=== PATIENT | female | born 1980 | race Caucasian/White ===

== ENCOUNTER 2019-10-10 17:10 | Outpatient (CLI) | payer OTHER, SELFPAY ==
--- NOTE | ~2019-10-10 | US_ITS ---
EXAMINATION: US thyroid DATE: 10/10/2019 17:36 INDICATION: Nontoxic single thyroid nodule TECHNIQUE: Multiple ultrasound images of the thyroid were obtained. COMPARISON: None. FINDINGS: The right thyroid lobe measures 5.0 x 1.3 x 1.7 cm. The left thyroid lobe measures 5.2 x 1.8 x 1.6 c m. Thyroid isthmus measures 2 mm in thickness. No significant interval change in a 2.1 x 1.4 x 1.0 cm wider than tall solid hypoechoic nodule with smooth margins and without echogenic foci. (TI-RADS 4, moderately suspicious , FNA if >=1.5 cm, annual followup is >1 cm) prior benign biopsy on 10/19/2018. Again seen are a few additional subcentimeter nodules in the left and right thyroid lobes. There is n ormal echotexture, echogenicity and vascular flow throughout the surrounding thyroid gland. IMPRESSION: 1. Multinodular goiter with a few centimeter nodules and no interval change in the largest 2.1 cm lef t thyroid nodule with prior benign biopsy demonstrating benign colloid nodule with cystic degenerati on. Reviewed, dictated and finalized at location A. IMPRESSION: 1. Multinodular goiter with a few centimeter nodules and no interval change in the largest 2.1 cm left thyroid nodule with prior benign biopsy demonstrating benign colloid nodule with cystic degeneration.
== END 2019-10-10 17:11 | disposition home or self-care (01) ==
PROVIDERS: PCP Physician Assistant
DX: E04.2 Nontoxic multinodular goiter (principal)
CPT/HCPCS: 76536

== ENCOUNTER → 2019-11-11 13:49 | Outpatient (CLI) | payer OTHER, SELFPAY ==
--- NOTE | ~2019-11-11 | XR_ITS ---
XR cervical spine 4-5V 11/11/2019 14:07 Indication: Neck pain Procedure: 4 view cervical spine Comparison: No prior studies for comparison. Findings: Straightening of cervical lordosis. Normal alignment. Vertebral body heights are maintained . No fracture or traumatic malalignment. Lung apices are unremarkable. No prevertebral soft tissue sw elling. Odontoid process within normal limits. Impression: 1: No significant abnormality of the cervical spine. Reviewed, dictated and finalized at location B. Impression: 1: No significant abnormality of the cervical spine.
== END ==
PROVIDERS: PCP Physician Assistant; Visit Provider Physician Assistant
DX: M54.2 Cervicalgia (principal); M54.12 Radiculopathy, cervical region
CPT/HCPCS: 72050

== ENCOUNTER → 2020-09-28 15:50 | Outpatient (CLI) | payer OTHER, SELFPAY ==
--- NOTE | ~2020-09-28 | US_ITS ---
EXAMINATION: US thyroid DATE: 09/28/2020 16:03 INDICATION: Thyroid nodule. TECHNIQUE: Multiple ultrasound images of the thyroid were obtained. COMPARISON: Thyroid ultrasound 10/10/2019, 09/28/18 FINDINGS: The right thyroid lobe measures 4.2 x 1.2 x 1.2 cm. The left thyroid lobe measures 5.7 x 1.5 x 1.8 c m. In the right thyroid lobe, there is a 6 mm solid, hypoechoic, fqdvd-ldre-rrtt nodule with irregul ar margin and macrocalcification (TI-RADS TR5), stable from 09/28/18. In the left thyroid lobe, there i s a 2.0 cm solid, hypoechoic, tthmd-mvqj-aovr nodule with smooth margin without echogenic foci (TR4), stable from 10/19/18 when biopsy was benign. In the left thyroid lobe, there is a 5 mm solid, hypoech oic, ojvph-gjii-wnnv nodule with smooth margin without echogenic foci (TR4), stable from 09/28/18. In t he right thyroid lobe, there is an 8 mm solid, hypoechoic, cwszj-mfsr-bqiy nodule with smooth margin without echogenic foci (TR4), stable from 09/28/18. IMPRESSION: 1. Stable thyroid nodules. Thyroid ultrasound is recommended in one year. Reviewed, dictated and finalized at location A.
== END ==
PROVIDERS: PCP Physician Assistant; Visit Provider Internal Medicine Endocrinology, Diabetes & Metabolism
DX: E04.1 Nontoxic single thyroid nodule (principal)
CPT/HCPCS: 76536

== ENCOUNTER → 2020-12-19 08:55 | Outpatient (CLI) | payer OTHER, SELFPAY ==
--- NOTE | ~2020-12-19 | MMUS_ITS ---
EXAMINATION: MM diag ronnie implant BI w [place], US breast RT limited HISTORY: Palpable lump in the upper outer quadrant of the right breast TECHNIQUE: Craniocaudal, mediolateral, and mediolateral oblique 3-D tomosynthesis images with implant displacement of the breasts were performed and synthetic 2-D images were generated. Craniocaudal, m ediolateral oblique, and mediolateral views of the breasts without implant displacement were obtained using full field digital mammography. CAD analysis was submitted and interpreted. High resolution [a]list games right breast ultrasound was performed. COMPARISON: None, baseline BREAST PARENCHYMAL COMPOSITION: The breasts are heterogeneously dense, which may obscure small masses . FINDINGS: MAMMOGRAPHIC FINDINGS: There is no evidence of suspicious mass, calcification, or architectural distortion in either breast to suggest malignancy. No mammographic correlate is identified for the reported palpable abnormality of the right breast. ULTRASOUND: There is no evidence of focal abnormal solid or cystic lesion in the vicinity of the reported palpabl e abnormality of concern in the right breast IMPRESSION: 1. No specific mammographic or sonographic correlate is identified for the reported palpable abnormal ities concern in the right breast. Further evaluation at this time should be based on clinical assess ment. Continued follow-up physical examination is recommended. 2. Recommend routine screening mammography in one year. BI-RADS Category 1: Negative Reviewed, dictated and finalized at location A. IMPRESSION: 1. No specific mammographic or sonographic correlate is identified for the repo rted palpable abnormalities concern in the right breast. Further evaluation at this time should be based on clinical assessment. Continued follow-up physical examination is recommended. 2. Recommend routine screening mammography in one year. BI-RADS Category 1: Negative
== END ==
PROVIDERS: PCP Physician Assistant; Visit Provider Physician Assistant
DX: R92.8 Other abnormal and inconclusive findings on diagnostic imaging of breast (principal)
CPT/HCPCS: 76642; 77062; 77066; G0279

== ENCOUNTER → 2021-02-11 10:08 | Outpatient (CLI) | payer OTHER, SELFPAY ==
--- NOTE | ~2021-02-11 | MR_ITS ---
EXAMINATION: MR brain IAC wo/w con DATE: 02/11/2021 11:27 INDICATION: Sudden idiopathic hearing loss on the left. TECHNIQUE: Magnetic resonance imaging (MRI) of the brain, brainstem, and internal auditory canals was performed without and with 15 mm MultiHance intravenous contrast. Sequences included sagittal and ax ial T1-weighted FSE, axial diffusion-weighted FS EPI, axial T2*-weighted GRE, axial T2-weighted FLAIR Propeller, axial T2-weighted Propeller, small psjhj-hm-gjlc coronal FIESTA, small jzvmo-rd-ycxj gini nal T1-weighted FSE, and small pyfwv-cx-yefn axial T1-weighted SPGR. Postcontrast sequences included axial T1-weighted FSE, small gzwde-pg-oobj coronal T1-weighted FSE, and small lnxfb-dm-esxu axial T1- weighted SPGR. Apparent diffusion coefficient (ADC) maps were created. COMPARISON: None. FINDINGS: There is no intracranial hemorrhage, acute infarction, or abnormal intracranial mass lesion . There is a 2.9 x 2.1 cm arachnoid cyst posterior to cerebellar vermis. The ventricles are normal in size. There is mild mucosal thickening in the paranasal sinuses. The orbits are normal. The internal auditory canals and inner and middle ears are normal. The mastoid air cells are normal. IMPRESSION: 1. No etiology for the patient's symptoms. Reviewed, dictated and finalized at location A.
[2021-02-11 10:55] LABS: Estimated Glomerular Filt Rate > 60
== END ==
PROVIDERS: PCP Physician Assistant; Visit Provider Nurse Practitioner Family
DX: H91.20 Sudden idiopathic hearing loss, unspecified ear (principal)
CPT/HCPCS: 70553; A9577

== ENCOUNTER → 2021-07-24 11:11 | Outpatient (CLI) | payer OTHER, SELFPAY ==
--- NOTE | ~2021-07-24 | XR_ITS ---
XR lumbar spine 2-3V DATE: 07/24/2021 11:39 INDICATION: Low back pain TECHNIQUE: AP, lateral, coned lateral lumbosacral views COMPARISON: 02/27/2017 MRI lumbar spine 09/26/2016 lumbar spine FINDINGS: There is minimal levoscoliosis of the lumbar spine. No fracture or bone destruction or spondylolisthesis. Lumbar interspaces are well preserved. The sacroiliac joints are intact. IMPRESSION: Minimal levoscoliosis Reviewed, dictated and finalized at location A. IMPRESSION: Minimal levoscoliosis
--- NOTE | ~2021-07-24 | XR_ITS ---
XR sacroiliac joints min 3V DATE: 07/24/2021 11:39 INDICATION: Low back pain TECHNIQUE: 6 views COMPARISON: None FINDINGS: Normal alignment at the pubic symphysis and sacroiliac joints. No erosive change or ankylos is at left or right sacroiliac joints. IMPRESSION: No significant abnormality of the sacroiliac joints Reviewed, dictated and finalized at Location A. Reviewed, dictated and finalized at location A.
== END ==
PROVIDERS: PCP Physician Assistant; Visit Provider Physician Assistant
DX: M54.50 Low back pain, unspecified (principal); M41.9 Scoliosis, unspecified
CPT/HCPCS: 72100; 72202

== ENCOUNTER 2021-07-31 10:30 | Emergency (ER) | payer OTHER, SELFPAY ==
[2021-07-31 10:48] VITALS: BP 113/79; PULSE 63; RESP 18; TEMP 36; O2SAT 100
[2021-07-31] MEDS: IBUPROFEN 600 MG TABLET PO (11:26)
--- NOTE | 2021-07-31 11:44 | PC.NURSE ---
short leg splint placed to left lower extremity
--- NOTE | 2021-07-31 12:08 | ED.LOWEXIN ---
HPI - Extremity Injury (Lower) General Chief Complaint: Extremity Injury, Lower Stated Complaint: L calf injury Time Seen by Provider: 07/31/21 10:58 Source: RN notes reviewed History of Present Illness HPI Narrative: Patient presents emergency department for left calf pain. Patient states she was playing tennis just prior to arrival when she felt a pop in her left calf she states since that time she had problems moving her left foot with pain in the left calf she denies falling she denies any direct trauma or injury to the area she denies any knee or ankle pain she denies any numbness or tingling in extremities patient states she drove her self to the emergency Related Data Home Medications Medication Instructions Recorded Confirmed multivitamin,iz-xrqq-brsqvvxt 1 tablet PO DAILY 12/20/19 01/05/21 Allergies Allergy/AdvReac Type Severity Reaction Status Date / Time cefazolin Allergy Unknown Unknown Verified 07/31/21 10:59 levofloxacin Allergy Unknown Unknown Verified 07/31/21 10:59 Penicillins Allergy Unknown Unknown Verified 07/31/21 10:59 CEFAZOLIN SODIUM Allergy Mild HIVES Uncoded 07/31/21 10:59 Review of Systems Review of Systems: Gen.: Denies fevers or chills Musculoskeletal: See HPI Neuro: Denies numbness, tingling, weakness Skin: Denies rash Endo: Denies DM PMFSH Past Medical History Medical History Acid reflux Missed Vaginal delivery x 2 Surgical History Surgical History H/O bilateral breast reduction surgery History of tonsillectomy S/P dilation and curettage [place] teeth extracted Family History Family History Mother Family history of hypercholesterolemia Hypertension Father Family history of malignant neoplasm of esophagus Social History Social History Smoking status: Never smoker Alcohol intake: current Exam Narrative: APPEARANCE: No acute distress, nontoxic, resting in bed Eyes: EOMI HEENT: Normocephalic, atraumatic, RESPIRATORY: No respiratory distress MUSCULOSKELETAl: Tender palpation of the left calf no swelling or ecchymosis present no tenderness left knee or ankle, positive Duenas test, dorsalis pedis pulse 2+ neurovascular intact NEURO: Awake and alert. Following commands, speech normal, no focal deficits SKIN:: Warm, dry. Normal Color no rash or lesions Course Course Emergency Course: Discussed with Dr. Sawant concern over Achilles tendon rupture recommend patient placed in a posterior short leg splint with follow-up as an outpatient request patient started on aspirin 325 daily Discussed with patient results of workup and diagnosis. Discussed need for follow-up with primary care, proper use of medication, and reasons to return to the emergency department. Patient understands and agrees to current treatment plan Vital Signs Vital signs: Vital Signs Temperature 96.8 F L 07/31/21 10:48 Pulse Rate 63 07/31/21 10:48 Respiratory Rate 18 07/31/21 10:48 Blood Pressure 113/79 07/31/21 10:48 Pulse Oximetry 100 07/31/21 10:48 Temperature 96.8 F L 07/31/21 10:48 Pulse Rate 63 07/31/21 10:48 Respiratory Rate 18 07/31/21 10:48 Blood Pressure 113/79 07/31/21 10:48 Pulse Oximetry 100 07/31/21 10:48 Procedures Orthopedic Splinting/Casting Injury #1: Additional Comments: Left posterior short leg: Splint was placed by the emergency department fuel storage technician under my supervision. The patient was neurovascularly intact both pre-and post procedure. Discharge Plan Discharge Clinical Impression: Rupture of left Achilles tendon Patient Disposition: Home, Self-Care Condition: Stable Instructions: Antibiotic Form, Achilles Tendon Rupture (ED) Additional Instructions: Return for increasing pain numbness or tinglin
[2021-07-31 12:19] VITALS: BP 130/76; PULSE 76; RESP 16; TEMP 36.3; O2SAT 100
== END 2021-07-31 12:21 | disposition home or self-care (01) ==
PROVIDERS: Emergency Provider Emergency Medicine; PCP Physician Assistant
DX: S86.012A Strain of left Achilles tendon, initial encounter (principal); X50.0XXA Overexertion from strenuous movement or load, initial encounter
CPT/HCPCS: 29515; 99283; A9270

== ENCOUNTER → 2021-12-23 10:58 | Outpatient (CLI) | payer OTHER, SELFPAY ==
--- NOTE | ~2021-12-23 | MM_ITS ---
EXAMINATION: MM screening [facility] BI w [place]ka HISTORY: Screening mammogram TECHNIQUE: Craniocaudal and mediolateral oblique 3-D tomosynthesis images were obtained and synthetic 2-D images were generated. CAD analysis was submitted and interpreted. COMPARISON: 12/19/2020 BREAST PARENCHYMAL COMPOSITION: The breasts are extremely dense, which lowers the sensitivity of mamm ography. FINDINGS: There has been interval breast implant removal. There is no suspicious mass, calcification, or architectural distortion to suggest malignancy in either breast. There has been no suspicious int erval change. IMPRESSION: 1. No mammographic evidence of malignancy. 2. Recommend routine screening mammography in one year. BI-RADS Category 1: Negative Reviewed, dictated and finalized at location A.
--- NOTE | ~2021-12-23 | US_ITS ---
EXAMINATION: US thyroid DATE: 12/23/2021 11:19 INDICATION: Nontoxic single thyroid nodule. TECHNIQUE: Multiple ultrasound images of the thyroid were obtained. COMPARISON: Ultrasound 09/28/2020, 09/28/2018 FINDINGS: The right thyroid lobe measures 5.6 x 1.6 x 1.4 cm. The left thyroid lobe measures 4.6 x 1.3 x 1.9 c m. In the left thyroid lobe, there is a 2.2 cm solid, hypoechoic, wider than tall nodule with smooth margin without echogenic foci (TI-RADS TR4), stable from 10/19/18 when biopsy was benign. In the left thyroid lobe, there is a 6 mm solid, hypoechoic, wider than tall nodule with ill-defined margin with out echogenic foci (TR4). In the right thyroid lobe, there is a 7 mm solid, hypoechoic, wider than ta ll nodule with smooth margin without echogenic foci (TR4). In the right thyroid lobe, there is a 7 mm solid, hypoechoic, wider than tall nodule with irregular margin without echogenic foci (TR4). In the right thyroid lobe, there is an 8 mm solid, hypoechoic, wider than tall nodule with ill-defined tej in without echogenic foci (TR4). IMPRESSION: 1. Multinodular goiter, likely not clinically significant. No follow-up is needed. Reviewed, dictated and finalized at location A. IMPRESSION: 1. Multinodular goiter, likely not clinically significant. No follow-up is need ed.
== END ==
PROVIDERS: PCP Physician Assistant; Visit Provider Internal Medicine Endocrinology, Diabetes & Metabolism
DX: Z12.31 Encounter for screening mammogram for malignant neoplasm of breast (principal); E04.2 Nontoxic multinodular goiter
CPT/HCPCS: 76536; 77063; 77067

== ENCOUNTER → 2022-10-29 14:51 | Outpatient (CLI) | payer OTHER, SELFPAY ==
--- NOTE | ~2022-10-29 | US_ITS ---
EXAMINATION: US thyroid DATE: 10/29/2022 15:23 INDICATION: Nontoxic single thyroid nodule. TECHNIQUE: Multiple ultrasound images of the thyroid were obtained. COMPARISON: Ultrasound 12/23/2021, 10/19/18 FINDINGS: The right thyroid lobe measures 5.4 x 1.6 x 1.2 cm. The left thyroid lobe measures 5.7 x 1.4 x 1.7 c m. In the left thyroid lobe, there is a 2.3 cm solid, hypoechoic, wider than tall nodule with ill-de fined margin without echogenic foci (TI-RADS TR4), stable from 10/19/18 when biopsy was benign. In the left thyroid lobe, there is a 10 mm solid, isoechoic, wider than tall nodule with ill-defined margin without echogenic foci (TR3). In the right thyroid lobe, there is a 7 mm solid, isoechoic, wider julio n tall nodule with ill-defined margin without echogenic foci (TR3). IMPRESSION: 1. Multinodular goiter, likely not clinically significant. No follow-up is needed. Reviewed, dictated and finalized at location A. IMPRESSION: 1. Multinodular goiter, likely not clinically significant. No follow-up is need ed.
== END ==
PROVIDERS: PCP Internal Medicine Endocrinology, Diabetes & Metabolism; Visit Provider Internal Medicine Endocrinology, Diabetes & Metabolism
DX: E04.2 Nontoxic multinodular goiter (principal)
CPT/HCPCS: 76536

== ENCOUNTER → 2023-03-25 09:21 | Outpatient (CLI) | payer BC, SELFPAY ==
--- NOTE | ~2023-03-25 | XR_ITS ---
Right Knee Technique: AP, lateral, and sunrise views were obtained. Clinical History: Strain Findings: No fracture or dislocation is seen. Osseous alignment is anatomic. Joint spaces are preserv ed without degenerative or erosive change. Soft tissues are unremarkable. No joint effusion is seen. Impression: Unremarkable right knee radiographs. Reviewed, dictated and finalized at location . IR MANAGER Impression: Unremarkable right knee radiographs.
== END ==
PROVIDERS: PCP Physician Assistant; Visit Provider Physician Assistant
DX: S86.911A Strain of unspecified muscle(s) and tendon(s) at lower leg level, right leg, initial encounter (principal); X58.XXXA Exposure to other specified factors, initial encounter
CPT/HCPCS: 73562

== ENCOUNTER → 2023-04-06 12:51 | Outpatient (CLI) | payer BC, SELFPAY ==
--- NOTE | ~2023-04-06 | MM_ITS ---
EXAMINATION: MM screening ronnie BI w [place] HISTORY: Screening TECHNIQUE: Craniocaudal and mediolateral oblique 3-D tomosynthesis images were obtained and synthetic 2-D images were generated. CAD analysis was submitted and interpreted. COMPARISON: Comparison to multiple prior studies sequentially, with oldest reviewed study dated 12/19. BREAST PARENCHYMAL COMPOSITION: The breasts are heterogeneously dense, which may obscure small masses . FINDINGS: There is no evidence of suspicious mass, calcification, or architectural distortion to sugg est malignancy in either breast. There has been no suspicious interval change. IMPRESSION: 1. No mammographic evidence of malignancy. 2. Recommend routine screening mammography in one year. BI-RADS Category 1: Negative Reviewed, dictated and finalized at location A. 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
== END ==
PROVIDERS: PCP Physician Assistant; Visit Provider Physician Assistant
DX: Z12.31 Encounter for screening mammogram for malignant neoplasm of breast (principal)
CPT/HCPCS: 77063; 77067

== ENCOUNTER 2023-06-26 12:17 | Outpatient (CLI) | payer OTHER, SELFPAY ==
--- NOTE | ~2023-06-26 | US_ITS ---
EXAMINATION: US thyroid DATE: 06/26/2023 12:40 INDICATION: Thyroid nodule. TECHNIQUE: Multiple ultrasound images of the thyroid were obtained. COMPARISON: Ultrasound 10/29/2022, 10/19/18 FINDINGS: The right thyroid lobe measures 5.2 x 1.3 x 1.3 cm. The left thyroid lobe measures 5.5 x 1.6 x 1.7 c m. In the right thyroid lobe, there is a 4 mm nodule. In the right thyroid lobe, there is an 8 mm so lid, isoechoic, wider than tall nodule with ill-defined margin without echogenic foci (TI-RADS TR3). In the left thyroid lobe, there is a 2.1 cm solid, isoechoic, wider than tall nodule with ill-defined margin without echogenic foci (TR3), stable from 10/19/2018 when biopsy was benign. In the left thyro id lobe, there is an 8 mm solid, hypoechoic, wider than tall nodule with ill-defined margin without e chogenic foci (TR4). IMPRESSION: 1. Multinodular goiter, likely not clinically significant. No follow-up is needed. Reviewed, dictated and finalized at location A. 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 Multinodular goiter, likely not clinically significant. No follow-up is need ed.
== END 2023-06-26 12:18 ==
LOC: MICIMG 12:18
PROVIDERS: PCP Internal Medicine Endocrinology, Diabetes & Metabolism; Visit Provider Internal Medicine Endocrinology, Diabetes & Metabolism
DX: E34.9 Endocrine disorder, unspecified (principal); E03.9 Hypothyroidism, unspecified; E04.2 Nontoxic multinodular goiter
CPT/HCPCS: 76536

== ENCOUNTER 2024-11-09 15:08 | Outpatient (CLI) | payer OTHER, SELFPAY ==
--- NOTE | ~2024-11-09 | MM_ITS ---
EXAMINATION: MM screening ronnie BI w [place] HISTORY: Screening TECHNIQUE: Craniocaudal and mediolateral oblique 3-D tomosynthesis images were obtained and synthetic 2-D images were generated. CAD analysis was submitted and interpreted. COMPARISON: Comparison to multiple prior studies sequentially, with oldest reviewed study dated 12/19. BREAST PARENCHYMAL COMPOSITION: Dense: The breasts are extremely dense, which lowers the sensitivity of mammography. FINDINGS: There is no evidence of suspicious mass, calcification, or architectural distortion to sugg est malignancy in either breast. There has been no suspicious interval change. IMPRESSION: 1. No mammographic evidence of malignancy. 2. Recommend routine screening mammography in one year. BI-RADS Category 1: Negative Reviewed, dictated and finalized at location B.
== END 2024-11-09 15:09 | disposition home or self-care (01) ==
PROVIDERS: PCP Physician Assistant; Visit Provider Nurse Practitioner Obstetrics & Gynecology
DX: Z12.31 Encounter for screening mammogram for malignant neoplasm of breast (principal)
CPT/HCPCS: 77063; 77067

== ENCOUNTER 2025-02-09 14:37 | Outpatient (CLI) | payer OTHER, SELFPAY ==
--- NOTE | ~2025-02-09 | US_ITS ---
EXAMINATION: US thyroid DATE: 02/09/2025 15:01 INDICATION: Thyroid nodules TECHNIQUE: Multiple ultrasound images of the thyroid were obtained. COMPARISON: 06/26/2023 FINDINGS: The right thyroid lobe measures 5.7 x 1.3 x 1.6 cm. The left thyroid lobe measures 5.6 x 1.7 x 1.5 cm. Unchanged 4-5 mm shadowing coarse calcification/calcified nodule at the inferior right thyroid. No significant change in a 9 mm solid isoechoic TI RADS 3 nodule with ill-defined margins in the superficial mid right thyroid lobe. There is a second similar appearing 8 mm TI RADS 3 nodule in the deep inferior right thyroid lobe which was present but not measured on the prior study. 2.2 cm solid wider than tall TI RADS 4 nodule with smooth margins which appears mixed isoechoic and hypoechoic on the current study which is unchanged since biopsy on 10/19/2018 which yielded pathology consistent with benign colloid nodule with cystic degeneration. Additional unchanged 8 mm TI RADS 4 solid hypoechoic left thyroid nodule. There is a new 7 mm mixed solid and cystic TI RADS 4 nodule with hypoechoic solid component, lobular margins and without echogenic foci left thyroid lobe. IMPRESSION: 1. Multinodular goiter without significant interval change with no change since 2019 in the single nodule meeting criteria for biopsy which was biopsied at that time yielding benign pathology. Reviewed, dictated and finalized at location A. IMPRESSION: 1. Multinodular goiter without significant interval change with no change since 2019 in the single nodule meeting criteria for biopsy which was biopsied at at time yielding benign pathology.
== END 2025-02-09 14:38 | disposition home or self-care (01) ==
PROVIDERS: PCP Physician Assistant; Visit Provider Internal Medicine Endocrinology, Diabetes & Metabolism
DX: E04.2 Nontoxic multinodular goiter (principal)
CPT/HCPCS: 76536